=== PATIENT | male | born 1940 | race African-American/Black ===

== ENCOUNTER 2018-11-14 12:45 | Outpatient (CLI) | END 2018-11-14 12:46 | disposition home or self-care (01) | LOC: CAR 12:45 | PROVIDERS: ATTEND Family Medicine | DX: R06.09 Other forms of dyspnea (principal) | CPT/HCPCS: 94761 ==

== ENCOUNTER 2019-01-14 14:26 | Outpatient (CLI) | END 2019-01-14 14:46 | disposition short-term general hospital (02) | LOC: AMBL 14:26 | PROVIDERS: ATTEND Emergency Medicine | DX: R53.1 Weakness (principal); R06.02 Shortness of breath; I48.91 Unspecified atrial fibrillation ==